=== PATIENT | male | born 1980 | race Caucasian/White ===

== ENCOUNTER 2017-06-28 15:24 | Observation (INO) | payer OTHER, SELFPAY ==
[2017-06-28] MEDS ORDERED: Zofran 4 MG/2 ML VIAL IV ONE (15:49)
[2017-06-28] MEDS ORDERED: MORPHINE SULFATE 4 MG INJ IV ONE ×2 (15:49→16:20)
[2017-06-28] MEDS ORDERED: Sodium Chloride 0.9% 1000 ML 1,000 ML IV STA (15:49)
--- NOTE | 2017-06-28 15:49 | ERPHSYRPT ---
- History of Present Illness Time Seen by Provider: 06/28/17 15:47 Historian: patient Physician History: 36-year-old white male arrives with complaint of severe abdominal pain he states he's had nausea and vomiting. States this has been going on intermittently for 3 weeks. Past medical history is negative. Past surgical history is negative. Timing/Duration: week(s) (3 weeks) Activities at Onset: none Quality: cramping Abdominal Pain Onset Location: LUQ, LLQ, epigastric Pain Radiation: no radiation Severity of Pain-Max: moderate Severity of Pain-Current: moderate Modifying Factors: Improves With: nothing Associated Symptoms: diarrhea, nausea, vomiting, No back, No chest pain, No diaphoresis, No fever/chills, No fatigue, No headache, No heartburn, No loss of appetite, No neck pain, No rash, No shortness of breath, No syncope, No testicular pain, No weakness Previous symptoms: no prior history Allergies/Adverse Reactions: No Known Drug Allergies Allergy (Verified 06/28/17 15:55) Home Medications: No Reportable Medications [No Reported Medications] 06/28/17 [History] Hx Tetanus, Diphtheria Vaccination/Date Given: Yes Hx Influenza Vaccination/Date Given: No Hx Pneumococcal Vaccination/Date Given: No - Review of Systems Constitutional: No Fever, No Chills Eyes: No Symptoms Ears, Nose, & Throat: No Symptoms Respiratory: No Cough, No Dyspnea Cardiac: No Chest Pain, No Edema, No Syncope Abdominal/Gastrointestinal: Abdominal Pain, Nausea, Vomiting, Diarrhea, No Constipation, No Hematemesis, No Hematochezia, No Melena, No Dysphagia, No Appetite Changes Genitourinary Symptoms: No Dysuria Musculoskeletal: No Back Pain, No Neck Pain Skin: No Rash Neurological: No Dizziness, No Focal Weakness, No Sensory Changes Psychological: No Symptoms Endocrine: No Symptoms All Other Systems: Reviewed and Negative - Past Medical History Pertinent Past Medical History: No Neurological History: No Pertinent History ENT History: No Pertinent History Cardiac History: No Pertinent History Respiratory History: No Pertinent History Endocrine Medical History: No Pertinent History Musculoskeletal History: No Pertinent History GI Medical History: No Pertinent History History: No Pertinent History Psycho-Social History: Depression Male Reproductive Disorders: No Pertinent History - Past Surgical History Past Surgical History: No Neuro Surgical History: No Pertinent History Cardiac: No Pertinent History Respiratory: No Pertinent History Gastrointestinal: No Pertinent History Genitourinary: No Pertinent History Musculoskeletal: No Pertinent History Male Surgical History: No Pertinent History Other Surgical History: PT DENIES SURGICAL HISTORY - Social History Smoking Status: Never smoker How long have you smoked: 20YRS Exposure to second hand smoke: Yes Drug Use: none Patient Lives Alone: Yes (HOMELESS) - Nursing Vital Signs Nursing Vital Signs: Initial Vital Signs Temperature 98.3 F 06/28/17 15:49 Pulse Rate 69 06/28/17 15:49 Respiratory Rate 20 06/28/17 15:49 O2 Sat by Pulse Oximetry 99 06/28/17 15:49 Pain Scale Pain Intensity 10 - Physical Exam General Appearance: moderate distress Eye Exam: PERRL/EOMI, eyes nml inspection Ears, Nose, Throat Exam: normal ENT inspection, pharynx normal, moist mucous membranes Neck Exam: normal inspection, non-tender, supple, full range of motion Respiratory Exam: normal breath sounds, lungs clear, No respiratory distress Cardiovascular Exam: regular rate/rhythm, normal heart sounds Gastrointestinal/Abdomen Exam: normal bowel sounds, tenderness (tenderness left side upper and lower), No soft (mildly firm) Back Exam: normal inspection, normal range of motion, No CVA tenderness, No vertebral tenderness Extremity Exam: normal inspection, normal range of motion, pelvis stable Neurologic Exam: alert, oriented x 3, cooperative, normal mood/affect, nml cerebellar function, sensation nml, No motor deficits Skin Exam: normal color, warm, dry SpO2 Interpretation: normal - Course Nursing assessment & vital signs reviewed: Yes - CT Exams Abdomen/Pelvis CT Interpretation: Discussed w/radiologist (CT abdomen and pelvis: Impression: 1. Fluid distended stomach and small/large bowel loops with fluid leveling and small bowel wall thickening/enlargement. Either ileus versus gastroenteris. 2. Incidental borderline splenomegaly and small hiatal hernia) Ordered Tests: Active Orders 24 hr Category Date Time Status IV Insertion STAT Care 06/28/17 15:49 Active ABDOMEN AND PELVIS W CONTRAST [CT] Stat Exams 06/28/17 16:36 Completed AMYLASE Stat Lab 06/28/17 15:30 Completed CBC W DIFF Stat Lab 06/28/17 15:30 Completed CMP Stat Lab 06/28/17 15:30 Completed LIPASE Stat Lab 06/28/17 15:30 Completed UA W/RFX UR CULTURE Stat Lab 06/28/17 15:50 Ordered Medication Summary Discontinued Medications Generic Name Dose Route Start Last Admin Trade Name Devonte PRN Reason Stop Dose Admin Sodium Chloride 1,000 mls @ 999 mls/hr 06/28/17 15:49 06/28/17 16:00 Sodium Chloride 0.9% 1000 Ml IV 06/28/17 16:49 999 mls/hr .Q1H1M STA Administration Sodium Chloride Confirm 06/28/17 15:55 Sodium Chloride 0.9% 1000 Ml Administered 06/28/17 15:56 Dose 1,000 mls @ ud .ROUTE .STK-MED ONE Morphine Sulfate 4 mg 06/28/17 15:49 06/28/17 16:00 Morphine Sulfate 4 Mg Inj IV 06/28/17 15:50 4 mg STAT ONE Administration Morphine Sulfate Confirm 06/28/17 15:55 Morphine Sulfate 4 Mg Inj Administered 06/28/17 15:56 Dose 4 mg .ROUTE .STK-MED ONE Morphine Sulfate 4 mg 06/28/17 16:20 06/28/17 16:24 Morphine Sulfate 4 Mg Inj IV 06/28/17 16:21 4 mg STAT ONE Administration Morphine Sulfate Confirm 06/28/17 16:22 Morphine Sulfate 4 Mg Inj Administered 06/28/17 16:23 Dose 4 mg .ROUTE .STK-MED ONE Ondansetron HCl 4 mg 06/28/17 15:49 06/28/17 16:01 Zofran 4 Mg/2 Ml Vial IV 06/28/17 15:50 4 mg STAT ONE Administration Ondansetron HCl Confirm 06/28/17 15:55 Zofran 4 Mg/2 Ml Vial Administered 06/28/17 15:56 Dose 4 mg .ROUTE .STK-MED ONE Lab/Rad Data: Laboratory Result Diagrams 06/28/17 15:30 06/28/17 15:30 Laboratory Results 06/28/17 06/28/17 Range/Units 15:30 15:30 WBC 17.0 H (4.0-10.5) K/mm3 RBC 6.17 H* (4.1-5.6) M/mm3 Hgb 17.8 (12.5-18.0) gm/dl Hct 54.6 H (42-50) % MCV 88.5 (78-100) fl MCH 28.8 (26-32) pg MCHC 32.6 (32-36) g/dl RDW 13.3 (11.5-14.0) % Plt Count 249 (150-450) K/mm3 MPV 10.5 H (6-9.5) fl Gran % 83.2 H (36.0-66.0) % Lymphocytes % 8.0 L (24.0-44.0) % Monocytes % 6.5 (0.0-12.0) % Eosinophils % 2.2 (0.00-5.0) % Basophils % 0.1 (0.0-0.4) % Basophils # 0.02 (0-0.4) Sodium 142 (136-145) mEq/L Potassium 3.6 (3.5-5.1) mEq/L Chloride 102 (98-107) mEq/L Carbon Dioxide 28.8 (21-32) mEq/L Anion Gap 14.3 (5-15) MEQ/L BUN 18 (9-20) mg/dL Creatinine 1.52 H (0.55-1.30) mg/dl Estimated GFR 56 ML/MIN Glucose 142 H (70-110) MG/DL Calcium 9.8 (8.5-10.1) mg/dL Total Bilirubin 0.40 (0.2-1.0) mg/dL AST 11 L (15-37) U/L ALT 31 (12-78) U/L Alkaline Phosphatase 96 (46-116) U/L Serum Total Protein 8.7 H (6.4-8.2) gm/dL Albumin 4.7 (3.4-5.0) g/dL Amylase 59 (25-115) U/L Lipase 139 (73-393) U/L - Progress Progress: improved Progress Note: 06/28/17 17:23 This is a 36-year-old white male arrives with complaint of 3 weeks vomiting diarrhea. He arrives in moderate distress with abdominal pain mostly on the right side of the abdomen he is tender with palpation abdomen seems mildly firm. Patient has a white count of 17,000. CT of the abdomen shows a fluid distended stomach and small/large bowel loops with fluid leveling and small bowel thickening/enlargement really him her, enlargement. Either ileus versus gastroenteritis. There is also incidental borderline splenomegaly a small hiatal hernia. Patient is improved but not pain-free after receiving IV normal saline 1 L and 8 mg morphine as well as Zofran 4 mg. Will discuss case with Dr. Kessler ethanol operations manager for the hospital service. 06/28/17 17:51 Case is discussed with Dr. Kessler. Will place patient on observation provide IV fluids pain medications and anti- emetics. - Departure Time of Disposition: 17:52 Departure Disposition: Observation Clinical Impression: Ileus, Gastroenteritis Abdominal pain Qualifiers: Abdominal location: unspecified location Qualified Code(s): R10.9 - Unspecified abdominal pain Vomiting Qualifiers: Vomiting type: unspecified Vomiting Intractability: unspecified Nausea presence : with nausea Qualified Code(s): R11.2 - Nausea with vomiting, unspecified Condition: Fair Critical Care Time: No Referrals: DOCTOR,NO FAMILY [Primary Care Provider] -
[2017-06-28] MEDS ORDERED: MORPHINE SULFATE 4 MG INJ ONE ×2 (15:55→16:22)
[2017-06-28] MEDS ORDERED: Zofran 4 MG/2 ML VIAL ONE (15:55)
[2017-06-28] MEDS ORDERED: Sodium Chloride 0.9% 1000 ML 1,000 ML ONE (15:55)
[2017-06-28 16:00] LABS: BASOPHIL % 0.1 % (0.0-0.4); Basophil (Absolute #) 0.02 (0-0.4); Eosinophil % 2.2 % (0.00-5.0); Eosinophil (Absolute #) 0.37 (0-0.5); Granulocyte Absolute (ANC) 14.15 (1.4-6.9); Granulocytes % 83.2 % (36.0-66.0); Hematocrit 54.6 % (42-50); Hemoglobin 17.8 gm/dl (12.5-18.0); Lymphocyte (Absolute #) 1.37 (1.0-4.6); Mean Cell Volume 88.5 fl (78-100); Mean Corpuscular Hemoglobin 28.8 pg (26-32); Mean Corpuscular Hgb Concent. 32.6 g/dl (32-36); Mean Platelet Volume 10.5 fl (6-9.5); Monocyte (Absolute #) 1.11 (0.0-1.3); Monocytes % 6.5 % (0.0-12.0); Platelet Count 249 K/mm3 (150-450); Red Blood Count 6.17 M/mm3 (4.1-5.6); Red Cell Distribution Width 13.3 % (11.5-14.0)
[2017-06-28 16:22] LABS: ALBUMIN 4.7 g/dL (3.4-5.0); ANION GAP 14.3 MEQ/L (5-15); BILIRUBIN,TOTAL 0.4 mg/dL (0.2-1.0); Calcium 9.8 mg/dL (8.5-10.1); Carbon Dioxide 28.8 mEq/L (21-32); Creatinine 1 1.52 mg/dl (0.55-1.30); Potassium 3.6 mEq/L (3.5-5.1); Total Protein 8.7 gm/dL (6.4-8.2)
--- NOTE | 2017-06-28 17:27 | XRAY ---
Indication: Abdominal pain. Multiple contiguous axial images obtained through the abdomen and pelvis using 80 cc of Isovue-370 contrast only. Comparison: None Lung bases demonstrates tiny right base calcified granuloma. Heart is not enlarged. Small hiatal hernia. Noncontrasted stomach, small, and large bowel loops are moderately fluid distended with fluid leveling. Several small bowel loops demonstrates mild wall thickening/enhancement. Findings either ileus versus gastroenterocolitis. Normal appendix. No free fluid/air. Spleen is borderline enlarged measuring 12.2 cm with a few calcified splenic granulomas. Remaining liver, gallbladder, pancreas, spleen, adrenal glands, kidneys, ureters, bladder, and aorta appear unremarkable. No pathologic retroperitoneal lymphadenopathy. Osseous structures intact. Impression: 1. Fluid distended stomach and small/large bowel loops with fluid leveling and small bowel wall thickening/enhancement either ileus versus gastroenterocolitis. 2. Incidental borderline splenomegaly and small hiatal hernia. CTDI 19.67
[2017-06-28] MEDS ORDERED: Zofran 4 MG/2 ML VIAL IV PRN (18:55)
[2017-06-28] MEDS: Sodium Chloride 0.9% 1000 ML 1,000 ML IV SCH (18:58)
[2017-06-28] MEDS ORDERED: MORPHINE SULFATE 2 MG INJ ONE (21:07)
[2017-06-28] MEDS ORDERED: Nicoderm CQ 21 MG TOP SCH (23:00)
[2017-06-28] MEDS: MORPHINE SULFATE 4 MG INJ IV PRN (23:58)
[2017-06-29] MEDS: Sodium Chloride 0.9% 1000 ML 1,000 ML IV SCH ×2 (05:10→20:04)
[2017-06-29 05:35] LABS: BASOPHIL % 0.1 % (0.0-0.4); Basophil (Absolute #) 0.01 (0-0.4); Eosinophil % 4.7 % (0.00-5.0); Eosinophil (Absolute #) 0.52 (0-0.5); Granulocyte Absolute (ANC) 7.01 (1.4-6.9); Hematocrit 44.5 % (42-50); Hemoglobin 14.5 gm/dl (12.5-18.0); Lymphocyte (Absolute #) 2.38 (1.0-4.6); Lymphocytes % 21.7 % (24.0-44.0); Mean Cell Volume 89.4 fl (78-100); Mean Corpuscular Hemoglobin 29.1 pg (26-32); Mean Corpuscular Hgb Concent. 32.6 g/dl (32-36); Mean Platelet Volume 10.2 fl (6-9.5); Monocyte (Absolute #) 1.04 (0.0-1.3); Monocytes % 9.5 % (0.0-12.0); Platelet Count 179 K/mm3 (150-450); Red Blood Count 4.98 M/mm3 (4.1-5.6)
[2017-06-29 06:21] LABS: ALBUMIN 3.2 g/dL (3.4-5.0); ALKALINE PHOSPHATASE 62 U/L (46-116); ANION GAP 9.9 MEQ/L (5-15); BLOOD UREA NITROGEN 13 mg/dL (9-20); CHLORIDE 108 mEq/L (98-107); Calcium 7.9 mg/dL (8.5-10.1); Carbon Dioxide 28.1 mEq/L (21-32); Creatinine 1 1.07 mg/dl (0.55-1.30); EST GLOMERULAR FILTRATION RATE > 60 ML/MIN; Glucose 82 MG/DL (70-110); SGOT/AST 11 U/L (15-37); SGPT/ALT 20 U/L (12-78); SODIUM 143 mEq/L (136-145); Total Protein 6.1 gm/dL (6.4-8.2)
[2017-06-29] MEDS ORDERED: PHARMACY DOSING REQUEST MC ONE (07:24)
[2017-06-29] MEDS: MORPHINE SULFATE 4 MG INJ IV PRN ×2 (08:19→13:36)
[2017-06-29] MEDS: FLAGYL 500 MG IVPB 500 MG/100 ML BAG IV SCH ×2 (08:22→14:26)
[2017-06-29] MEDS: solu-MEDROL 125 MG IV SCH ×2 (08:22→13:36)
--- NOTE | 2017-06-29 08:26 | HP ---
CHIEF COMPLAINT: Abdominal pain. HISTORY OF PRESENT ILLNESS: The patient is a 36 year-old white male patient who reports that he has been having problems with abdominal pain over the past three weeks. He has had epigastric pain with some vomiting. He has had left lower quadrant abdominal pain. He had diarrhea with watery stools. He denies any blood in the stool. He reports he had problems intermittently with this kind of problem in the past. He does report occasionally having bowel movements at nighttime even leakage in the bed from his abdominal problems. He reports there is also a niece who apparently has some bowel issues as well who had been seen at [facility] but he is unsure of what her diagnosis is. PAST MEDICAL/SURGICAL HISTORY: Otherwise unremarkable. PAST SURGICAL HISTORY: He has had no surgeries. HOME MEDICATIONS: He takes no medications. ALLERGIES: NKDA. PHYSICAL EXAMINATION: Revealed a well nourished, well developed 36 year-old white male patient in mild to moderate distress presently. His temperature was 98.3F in the emergency room with a pulse 69, respiratory rate 20, blood pressure currently running 118/81. O2 saturations 98% on room air. HEENT: Normocephalic, atraumatic. Pupils equal round reactive to light. Extraocular movements intact. Oropharynx is pink and moist. NECK: Supple without lymphadenopathy, thyromegaly or JVD. CHEST: Clear to auscultation with good air movement bilaterally. HEART: Regular rate and rhythm without murmurs, rubs or gallops. ABDOMEN: Diffusely tender to percussion. There are bowel sounds present. There are no palpable masses. , nondistended without hepatosplenomegaly or masses. EXTREMITIES: No clubbing, cyanosis or edema. NEUROLOGIC: The patient is alert and oriented x3 with no focal deficits. LAB DATA AND TESTS: CT scan of the abdomen and pelvis revealed what appears to be enterocolitis with air fluid levels but apparently no appendicitis or other pathology was noted. The patient's amylase and lipase were in the normal range. His CBC did show an elevation of his white blood cell count at 17,000 with what appeared to be a left shift with 83.2% granulocytes. His hemoglobin was 1 7.8, PLT count 249,000. The metabolic panel showed a glucose of 142 nonfasting, BUN 18, creatinine 1.52. His electrolytes were normal. Liver enzymes were normal. ASSESSMENT: A patient with probable gastroenteritis versus colitis. He has been admitted to the hospital for gut rest, IV fluid hydration and pain control. We will check his stools for blood. We will test for influenza B. We are suspicious for colitis at this point in time. He is placed empirically on Zosyn and Flagyl. He is also given Solu-Medrol 80 mg every 8 hours. Plan will be to eventually once he is feeling better to do endoscopic evaluation. We will advance his diet as tolerated with hopefully returning home soon for his evaluation follow up as an outpatient.
[2017-06-29] MEDS: POTASSIUM CHLORIDE 20 mEq IN WATER 100ML 20 MEQ/100 ML BAG IV SCH ×2 (08:29→10:05)
[2017-06-29 09:20] LABS: INFLUENZA A NEGATIVE (NEGATIVE); INFLUENZA B NEGATIVE (NEGATIVE); RESPIRATORY SYNCTIAL VIRUS NEGATIVE (Negative)
[2017-06-29] MEDS: Zosyn 3.375GM/100 Ml D5W 3.375 GM/100 ML IVPB IV SCH ×4 (09:38→18:46)
[2017-06-29] MEDS ORDERED: FLUCELVAX QUAD 2017-2018 SYR IM ONE (10:00)
[2017-06-29] MEDS ORDERED: PROTONIX 40 MG IV IV SCH (10:00)
[2017-06-29] MEDS ORDERED: Klor Con 10 MEQ PO SCH (15:00)
[2017-06-29 19:50] VITALS: BP 128/63; PULSE 90; O2SAT 97
[2017-06-29] MEDS ORDERED: Nicoderm CQ 21 MG TOP SCH (22:00)
[2017-06-30] MEDS ORDERED: FLUCELVAX QUAD 2017-2018 SYR IM ONE (09:45)
== END 2017-06-29 22:00 | disposition left against medical advice (07) ==
LOC: ED 15:24 → MED SURG 18:45
PROVIDERS: ADMIT Family Medicine; ATTEND Family Medicine
DX: K52.9 Noninfective gastroenteritis and colitis, unspecified (principal)
CPT/HCPCS: 36000; 36415; 74177; 80053; 82150; 83690; 84132; 85025; 87631; 96360; 96374; 96375; 99285; G0378; J2270; J2405; J2543; J2930; J3480; A9270-GY

== ENCOUNTER 2017-10-20 18:18 | Emergency (ER) | payer OTHER ==
[2017-10-20 18:29] VITALS: BP 154/78; PULSE 98; O2SAT 98
[2017-10-20] MEDS ORDERED: ULTRAM 50 MG PO ONE (18:35)
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
[2017-10-20] MEDS ORDERED: NORCO 5/325 MG PO ONE (18:47)
[2017-10-20] MEDS ORDERED: ULTRAM 50 MG ONE (19:15)
[2017-10-20] MEDS ORDERED: NORCO 5/325 MG ONE (19:16)
== END 2017-10-20 19:28 | disposition home or self-care (01) ==
LOC: ED 18:18
DX: L55.0 Sunburn of first degree (principal)
CPT/HCPCS: 99283; A9270-GY

== ENCOUNTER 2017-11-05 00:42 | Emergency (ER) | payer SELFPAY ==
[2017-11-05] MEDS ORDERED: Augmentin 875-125 Tablet PO ONE (01:11)
[2017-11-05] MEDS ORDERED: MOTRIN 600 MG PO ONE (01:11)
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
[2017-11-05] MEDS ORDERED: MOTRIN 600 MG ONE (01:18)
[2017-11-05] MEDS ORDERED: Augmentin 875-125 Tablet ONE (01:18)
[2017-11-05 02:52] VITALS: BP 141/90; PULSE 98; O2SAT 97
== END 2017-11-05 02:01 | disposition home or self-care (01) ==
LOC: ED 00:42
DX: L03.012 Cellulitis of left finger (principal)
CPT/HCPCS: 99283; A9270-GY

== ENCOUNTER 2019-12-26 22:20 | Emergency (ER) | payer MEDICAID, OTHER ==
[2019-12-26] MEDS ORDERED: EMLA Cream 5 GM TP ONE ×2 (22:43→22:45)
[2019-12-26] MEDS ORDERED: Norco 10/325 MG Tablet PO ONE (22:46)
[2019-12-26] MEDS ORDERED: Norco 10/325 MG Tablet ONE (22:51)
--- NOTE | 2019-12-26 22:56 | ERPHSYRPT ---
- History of Present Illness Time Seen by Provider: 12/26/19 22:52 Source: patient Exam Limitations: no limitations Patient Subjective Stated Complaint: pt to ER with complaints of L thumb infection x 1 week. Triage Nursing Assessment: A&Ox4. ambulatory. slight swelling in L thumb. Physician History: Patient is a 39-year-old male who presents with pain and swelling at the base of his left thumb pain radiates up the arm he attempted to drain it himself and was unsuccessful he states it is getting worse. Occurred: days ago (4) Method of Injury: other (The patient admits to biting his cuticles.) Quality: throbbing Severity of Pain-Max: moderate Severity of Pain-Current: moderate Extremities Pain Location: thumb: left (Swollen and painful) Modifying Factors: Improves With: nothing Allergies/Adverse Reactions: No Known Drug Allergies Allergy (Verified 12/26/19 22:44) Hx Tetanus, Diphtheria Vaccination/Date Given: Yes Hx Influenza Vaccination/Date Given: No Hx Pneumococcal Vaccination/Date Given: No Immunizations Up to Date: Yes Travel Risk - International Travel Have you traveled outside of the country in past 3 weeks: No - Coronavirus Screening Are you exhibiting any of the following symptoms?: No Close contact with a COVID-19 positive Pt in past 14-21 Days: No - Review of Systems Constitutional: No Fever, No Chills Eyes: No Symptoms Ears, Nose, & Throat: No Symptoms Respiratory: No Cough, No Dyspnea Cardiac: No Chest Pain, No Edema, No Syncope Abdominal/Gastrointestinal: No Abdominal Pain, No Nausea, No Vomiting, No Diarrhea Genitourinary Symptoms: No Dysuria Musculoskeletal: Joint Pain, Joint Swelling, No Back Pain, No Neck Pain Skin: No Rash Neurological: No Dizziness, No Focal Weakness, No Sensory Changes Psychological: No Symptoms Endocrine: No Symptoms All Other Systems: Reviewed and Negative - Past Medical History Pertinent Past Medical History: No Neurological History: No Pertinent History ENT History: No Pertinent History Cardiac History: No Pertinent History Respiratory History: No Pertinent History Endocrine Medical History: No Pertinent History Musculoskeletal History: No Pertinent History GI Medical History: No Pertinent History History: No Pertinent History Psycho-Social History: Depression Male Reproductive Disorders: No Pertinent History Other Medical History: previous colitis- unknown cause - Past Surgical History Past Surgical History: No Neuro Surgical History: No Pertinent History Cardiac: No Pertinent History Respiratory: No Pertinent History Gastrointestinal: No Pertinent History Genitourinary: No Pertinent History Musculoskeletal: No Pertinent History Male Surgical History: No Pertinent History Other Surgical History: PT DENIES SURGICAL HISTORY - Social History Smoking Status: Current every day smoker How long have you smoked: 20 years Exposure to second hand smoke: Yes Drug Use: none Patient Lives Alone: No - Nursing Vital Signs Nursing Vital Signs: Initial Vital Signs Temperature 98.3 F 12/26/19 22:36 Pulse Rate 85 12/26/19 22:36 Respiratory Rate 17 12/26/19 22:36 Blood Pressure 152/91 12/26/19 22:36 O2 Sat by Pulse Oximetry 99 12/26/19 22:36 Pain Scale Pain Intensity 8 - Physical Exam General Appearance: mild distress, alert Eyes, Ears, Nose, Throat Exam: moist mucous membranes Neck Exam: non-tender, supple Cardiovascular/Respiratory Exam: chest non-tender, normal breath sounds, regular rate/rhythm, no respiratory distress Abdominal Exam: non-tender, No guarding Back Exam: normal inspection, No vertebral tenderness Hand Exam: infection (Infection and swelling the base of the left thumb consistent with a paronychia), swelling Neuro/Tendon Exam: normal sensation, normal motor functions Mental Status Exam: alert, oriented x 3, cooperative Skin Exam: normal color, warm, dry SpO2: 99 Procedures - Incision and Drainage Anesthesia: emla Blade Size: 11 I & D Procedure: betadine prep Results: small amount pus - Course Nursing assessment & vital signs reviewed: Yes Ordered Tests: Active Orders 24 hr Category Date Time Status IV Insertion STAT Care 12/26/19 23:34 Active CULTURE,ABSCESS Stat Lab 12/26/19 00:10 Received Medication Summary Discontinued Medications Generic Name Dose Route Start Last Admin Trade Name Devonte PRN Reason Stop Dose Admin Hydrocodone Bitart/Acetaminophen 1 tab 12/26/19 22:46 12/26/19 22:52 [place] 10/325 Mg Tablet PO 12/26/19 22:47 1 tab STAT ONE Administration Hydrocodone Bitart/Acetaminophen Confirm 12/26/19 22:51 [place] 10/325 Mg Tablet Administered 12/26/19 22:52 Dose 1 tab .ROUTE .STK-MED ONE Hydromorphone HCl 1 mg 12/26/19 23:35 12/26/19 23:46 Hydromorphone 1 Mg/Ml Ampule IV 12/26/19 23:36 1 mg STAT ONE Administration Hydromorphone HCl Confirm 12/26/19 23:41 Hydromorphone 1 Mg/Ml Ampule Administered 12/26/19 23:42 Dose 1 mg .ROUTE .STK-MED ONE Clindamycin HCl/Dextrose 900 mg in 50 mls @ 100 mls/hr 12/26/19 23:34 12/26/19 23:45 Clindamycin-D5w 900 Mg/50 Ml IV 12/27/19 00:03 100 ml/hr STAT STA 100 mls/hr Administration Clindamycin HCl/Dextrose Confirm 12/26/19 23:41 Clindamycin-D5w 900 Mg/50 Ml Administered 12/26/19 23:42 Dose 900 mg in 50 mls @ ud IV .STK-MED ONE Lidocaine/Prilocaine 2.5 gm 12/26/19 22:43 12/26/19 22:46 Emla Cream 5 Gm TP 12/26/19 22:44 2.5 gm STAT ONE Administration Lidocaine/Prilocaine Confirm 12/26/19 22:45 Emla Cream 5 Gm Administered 12/26/19 22:46 Dose 5 gm TP .STK-MED ONE - Progress Progress: unchanged - Departure Departure Disposition: Home Clinical Impression: Paronychia Condition: Stable Critical Care Time: No Referrals: DOCTOR,NO FAMILY [Primary Care Provider] - Instructions: Paronychia (DC) Prescriptions: Oxycodone HCl/Acetaminophen [Percocet 5-325 mg Tablet] 1 each PO Q6H PRN PRN 3 Days #12 tablet MDD 4 PRN Reason: Pain clindamycin HCL [Cleocin HCl] 300 mg PO TID 10 Days #30 capsule
[2019-12-26] MEDS ORDERED: CLINDAMYCIN-D5W 900 MG/50 ML*** 900 MG/50 ML BAG IV STA (23:34)
[2019-12-26] MEDS ORDERED: Hydromorphone 1 mg/ml Ampule IV ONE (23:35)
[2019-12-26] MEDS ORDERED: Hydromorphone 1 mg/ml Ampule ONE (23:41)
[2019-12-26] MEDS ORDERED: CLINDAMYCIN-D5W 900 MG/50 ML*** 900 MG/50 ML BAG IV ONE (23:41)
[2019-12-27] MEDS ORDERED: NORCO 5/325 MG PO ONE (00:29)
[2019-12-27] MEDS ORDERED: NORCO 5/325 MG ONE (00:30)
[2019-12-27] MEDS ORDERED: Hydromorphone 1 mg/ml Ampule ONE (00:31)
[2019-12-27] MEDS ORDERED: Hydromorphone 1 mg/ml Ampule IV ONE (00:35)
[2019-12-27 01:05] VITALS: BP 145/78; PULSE 81; O2SAT 97
== END 2019-12-27 01:17 | disposition home or self-care (01) ==
LOC: ED 22:20
DX: L03.012 Cellulitis of left finger (principal)
CPT/HCPCS: 26010; 36000; 87070; 96374; 96376; 99284; J1170; A9270-GY

== ENCOUNTER 2020-02-05 22:48 | Emergency (ER) | payer MEDICAID ==
--- NOTE | 2020-02-05 23:12 | ERPHSYRPT ---
- History of Present Illness Time Seen by Provider: 02/05/20 23:07 Source: patient Exam Limitations: no limitations Physician History: This is a 39-year-old white male who has poor dentition and presents with a few day history of right lower molar pain after fracture of 1 of his molars. This morning, the patient noticed some swelling in this area the pain is worsened. Patient took a single oxycodone earlier this evening and it did not seem to help the pain much. Patient has no known drug allergies. Timing/Duration: gradual onset Severity: moderate ENT Location: dental Prearrival Treatment: prescription meds (1 oxycodone at 7 PM) Associated Symptoms: swollen glands (Right submandibular) Allergies/Adverse Reactions: No Known Drug Allergies Allergy (Verified 02/05/20 22:52) Hx Tetanus, Diphtheria Vaccination/Date Given: Yes Hx Influenza Vaccination/Date Given: No Hx Pneumococcal Vaccination/Date Given: No Travel Risk - International Travel Have you traveled outside of the country in past 3 weeks: No - Coronavirus Screening Are you exhibiting any of the following symptoms?: No Close contact with a COVID-19 positive Pt in past 14-21 Days: No - Review of Systems Constitutional: No Symptoms Eyes: No Symptoms Ears, Nose, & Throat: Other (Lower dental (molar) pain on right) Respiratory: No Symptoms Cardiac: No Symptoms Abdominal/Gastrointestinal: No Symptoms Genitourinary Symptoms: No Symptoms Musculoskeletal: No Symptoms Skin: No Symptoms Neurological: No Symptoms Psychological: No Symptoms Endocrine: No Symptoms Hematologic/Lymphatic: No Symptoms Immunological/Allergic: No Symptoms All Other Systems: Reviewed and Negative - Past Medical History Pertinent Past Medical History: No Neurological History: No Pertinent History ENT History: No Pertinent History Cardiac History: No Pertinent History Respiratory History: No Pertinent History Endocrine Medical History: No Pertinent History Musculoskeletal History: No Pertinent History GI Medical History: No Pertinent History History: No Pertinent History Psycho-Social History: Depression Male Reproductive Disorders: No Pertinent History Other Medical History: previous colitis- unknown cause - Past Surgical History Past Surgical History: No Neuro Surgical History: No Pertinent History Cardiac: No Pertinent History Respiratory: No Pertinent History Gastrointestinal: No Pertinent History Genitourinary: No Pertinent History Musculoskeletal: No Pertinent History Male Surgical History: No Pertinent History Other Surgical History: PT DENIES SURGICAL HISTORY - Social History Smoking Status: Current every day smoker How long have you smoked: 20 years Exposure to second hand smoke: Yes Drug Use: none Patient Lives Alone: No - Physical Exam General Appearance: no apparent distress, alert, anxiety Eye Exam: bilateral eye: normal inspection, PERRL, EOMI Ear Exam: bilateral ear: auricle normal Nasal Exam: normal inspection Throat Exam: dental tenderness (Right lower molar with fracture) Neck Exam: lymphadenopathy (R) (Submandibular) Cardiovascular/Respiratory Exam: chest non-tender, no respiratory distress Abdominal Exam: non-tender Neurologic Exam: alert, oriented x 3, cooperative, special librarian II-XII nml as tested, normal mood/affect, nml cerebellar function, nml station & gait, sensation nml Skin Exam: normal color, warm, dry SpO2 Interpretation: normal O2 Delivery: Room Air - Course Nursing assessment & vital signs reviewed: Yes - Progress Progress: pain not gone completely, re-examined Counseled pt/family regarding: diagnosis, need for follow-up - Departure Departure Disposition: Home Clinical Impression: Pain, dental Condition: Stable Critical Care Time: No Referrals: DOCTOR,NO FAMILY [Primary Care Provider] - Additional Instructions: Ibuprofen 600 mg orally with food 3 times a day for 5 days. Call a dentist tomorrow, 02/06/2020, for definitive management Prescriptions: Penicillin V Potassium 500 mg PO QID #28 tablet Tramadol HCl 50 mg [Ultram 50 mg] 50 mg PO TID PRN #15 tablet PRN Reason: Moderate To Severe Pain
[2020-02-05] MEDS ORDERED: MOTRIN 600 MG PO ONE (23:18)
[2020-02-05] MEDS ORDERED: PERCOCET TABLET 5/325MG PO STA (23:18)
[2020-02-05] MEDS ORDERED: PEN-VEE K PO ONE (23:19)
[2020-02-05 23:20] VITALS: O2SAT 98
[2020-02-05] MEDS ORDERED: PEN-VEE K ONE (23:21)
[2020-02-05] MEDS ORDERED: PERCOCET TABLET 5/325MG ONE (23:22)
[2020-02-05] MEDS ORDERED: MOTRIN 600 MG ONE (23:22)
[2020-02-05 23:35] VITALS: BP 143/83; PULSE 96
== END 2020-02-05 23:35 | disposition home or self-care (01) ==
LOC: ED 22:48
DX: K08.89 Other specified disorders of teeth and supporting structures (principal)
CPT/HCPCS: 99283; A9270-GY